=== PATIENT | female | born 1955 | race Caucasian/White ===

== ENCOUNTER 2018-07-08 10:49 | Emergency (ER) | payer SELFPAY, OTHER | END 2018-07-08 11:55 | disposition left against medical advice (07) | LOC: E/R 10:49 | DX: Z53.21 Procedure and treatment not carried out due to patient leaving prior to being seen by health care provider (principal) ==

== ENCOUNTER 2018-12-26 09:07 | Emergency (ER) | payer OTHER ==
[2018-12-26] MEDS: morphine 4 MG/ML VIAL IV (10:07)
[2018-12-26] MEDS: ONDANSETRON 4 MG INJ IV (10:07)
== END 2018-12-26 11:12 | disposition home or self-care (01) ==
LOC: E/R 11:12
DX: S82.892A Other fracture of left lower leg, initial encounter for closed fracture (principal); I10 Essential (primary) hypertension; W01.0XXA Fall on same level from slipping, tripping and stumbling without subsequent striking against object, initial encounter; Y92.9 Unspecified place or not applicable
CPT/HCPCS: 29515; 73610; 99283-25